=== PATIENT | male | born 1975 | race Caucasian/White ===

== ENCOUNTER 2021-06-21 18:09 | Emergency (ER) | payer SELFPAY ==
[~2021-06-21] VITALS: Ht 185.4 cm; Wt 77.1 kg
[2021-06-21] MEDS ORDERED: HYDROCODON-ACE1 EA10 PO (23:13)
== END 2021-06-22 01:16 | disposition home or self-care (01) ==
LOC: ED 18:09
DX: T20.10XA Burn of first degree of head, face, and neck, unspecified site, initial encounter (principal); T20.17XA Burn of first degree of neck, initial encounter; T22.10XA Burn of first degree of shoulder and upper limb, except wrist and hand, unspecified site, initial encounter; W40.8XXA Explosion of other specified explosive materials, initial encounter
CPT/HCPCS: 36415; 71045; 80048; 85025; 96374; 96375; 96376; 99283-25; J1170; J1885; J7040